=== PATIENT | male | born 2000 | race Hispanic/Latino ===

== ENCOUNTER 2025-08-15 05:57 | Day surgery (SDC) | payer OTHER ==
[2025-08-13 13:57] LABS: Absolute Lymphocytes (CBC) 2.0 K/uL (0.7-4.9); Hematocrit 42.5 % (39.6-49.0); Hemoglobin 14.3 g/dL (13.6-17.9); MCH 28.8 pg (27.0-35.0); MCHC 33.6 g/dL (32.0-36.0); MCV 85.8 fL (80-100); MPV 10.6 fL (7.6-11.3); Nucleated RBC Absolute Count 0.0 (0-0); Nucleated Red Blood Cells % 0.0 % (0-0); RBC Red Blood Cell Count 4.95 M/uL (4.33-5.43); White Blood Count 6.60 thou/uL (4.3-10.9)
[2025-08-13 14:05] LABS: PT Prothrombin Time 13.0 SECONDS (10-13.0); PTT, Activated Partial Thromb 34.4 SECONDS (27.2-37.4); Protime INR 1.16
[2025-08-13 14:14] LABS: Anion Gap 10.7 mEq/L (5.0-15.0); BUN Blood Urea Nitrogen 18.0 mg/dL (7-18); Glucose Level 101.0 mg/dL (74-106); Potassium 3.7 mEq/L (3.5-5.1)
--- NOTE | 2025-08-13 18:35 | RAD REPORT ---
EXAMINATION: TWO VIEW CHEST XR CLINICAL INDICATION: Male, 24 years old. Hypertension. Pre-op pending ACL repair TECHNIQUE: 2 view radiographs of the chest were performed. COMPARISON: No prior exam. FINDINGS: The lungs are well inflated and clear. No pneumothorax or sizable effusion. The heart is normal in si ze. Mediastinal contours are unremarkable. IMPRESSION: No acute or significant abnormalities.
[2025-08-15] MEDS: Ringers Lactate 1,000 ML IV ONE ×2 (06:00→09:00)
[2025-08-15] MEDS ORDERED: LIDOCAINE 1% MPF 5 ML VIAL ONE (06:27)
[2025-08-15] MEDS ORDERED: MIDAZOLAM HCL 2 MG/2 ML INJ ONE (06:28)
[2025-08-15] MEDS ORDERED: BUPIVACAINE 0.5% PF 10 ML VIAL ONE (06:28)
[2025-08-15] MEDS ORDERED: EPINEPHRINE 1 MG/ML VIAL ONE (06:29)
[2025-08-15] MEDS ORDERED: FENTANYL CITR 100 MCG/2 ML ONE ×2 (06:29→10:35)
[2025-08-15] MEDS ORDERED: KETAMINE HCL IN 0.9 % NACL 50 MG/5 ML SYRINGE IV ONE (07:15)
[2025-08-15] MEDS ORDERED: KETOROLAC 30 MG/ML INJ ONE (07:15)
[2025-08-15] MEDS ORDERED: ONDANSETRON 4 MG/2 ML VIAL ONE (07:15)
[2025-08-15] MEDS ORDERED: LIDOCAINE 2% MPF 5 ML VIAL ONE ×2 (07:15)
[2025-08-15] MEDS ORDERED: MAGNESIUM SULFATE 1 gm IVPB 1 GM/100 ML BAG IV ONE (07:40)
[2025-08-15] MEDS ORDERED: DEXMEDETOMIDINE HCL 200 MCG/2 ML VIAL ONE (07:40)
[2025-08-15] MEDS: CEFAZOLIN SODIUM 2 GM/VIAL ONE (07:58)
--- NOTE | 2025-08-15 11:01 | P.BOP ---
Preoperative diagnosis: Right knee ACL tear Postoperative diagnosis: Same, right knee lateral meniscus tear Primary procedure: Right knee arthroscopic ACL recon w bone patellar tendon bone autograft Secondary procedure: Right knee arthroscopic partial lateral meniscectomy [employer]: NONE,NONE Estimated blood loss: 10 cc Specimen: None Anesthesia: General Complications: None Implants: Two 7 x 20 mm Arthrex bio screws, 6.5 x 25 mm post Fluids & blood products: Per anesthesia record Transferred to: Recovery Room Condition: Good
--- NOTE | 2025-08-15 11:09 | P.OP ---
Preoperative diagnosis: Right knee ACL tear Postoperative diagnosis: Same, right knee lateral meniscus tear Primary procedure: Right knee arthroscopic ACL recon w bone patellar tendon bone autograft Secondary procedure: Right knee arthroscopic partial lateral meniscectomy Anesthesia: General Estimated blood loss: 10 cc Specimen: None Findings: see dictation Operative Technique: Indications For Procedure: Jason is a 24-year-old male, who presented to my clinic after sustaining an injury to his right knee. He reports subsequent instability, pain, and swelling to his right knee. Physical exam findings, as well as MRI findings were consistent with right knee ACL tear. After a discussion with the patient and his family the risks and benefits associated operative and nonoperative treatment at length, as well as graft options, they expressed understanding and elected to proceed with right ACL reconstruction with bone-patellar tendon-bone autograft. Description Of Procedure: After informed consent was obtained, the patient was identified in the preoperative holding area. The right lower extremity was marked. The patient was then brought back to the operating room, transferred to the operating table in supine fashion, and placed under general LMA anesthesia. The right lower extremity was examined. The patient did have full range of motion and a positive Lucrecia examination with instability and no endpoint. The right lower extremity was then prepped and draped in the usual sterile fashion, and a timeout was initiated. The correct patient and procedure were identified. The patient did receive his prophylactic preoperative antibiotics. An Esmarch was then used exsanguinate the right lower extremity, and the tourniquet was then inflated to 300 mmHg. Attention was first taken to obtaining the bone-patellar tendon-bone autograft. A midline incision was made over the patellar tendon extending just from the inferior pole of the patella, as well as the proximal aspect of the tibial tuberosity. Dissection was then taken down to the peritenon using a 15 blade. Peritenon was split, divided, and preserved. The patellar tendon was identified. A central 1 cm portion of the patellar tendon was then incised using a 10 blade from the inferior pole of the patella to the tibial tuberosity. A handsaw was then used to remove the 10 x 20 mm bone block over the inferior pole of the patella, as well as the 10 x 20 mm bone block over the proximal tibia. The graft was taken without complication and taken to the back table by the first aid instructor for preparation for placement in the tunnel. The patellar tendon was then approximated using 0 Vicryl. The paratenon was then approximated using 0 Vicryl. Bone graft obtained from extra bone from the bone plugs were then placed in the bony voids of the patella and within the inferior patella, as well as the tibial tuberosity. Subcutaneous tissues were approximated using a 2-0 Vicryl. Next, a standard anterolateral portal was made, and a diagnostic arthroscopy was performed. The arthroscope was brought into the patellofemoral compartment. The patient was noted to have pristine cartilage over the undersurface of the patella, as well as the trochlear groove. The arthroscope was then brought into both medial and lateral gutters, and there were no obvious loose bodies noted. The arthroscope was then brought into the medial compartment, and under direct visualization with the spinal needle and an 11 blade, an anteromedial portal was then created. The probe was inserted, and there was pristine cartilage in the medial femoral condyle. The medial tibial plateau and the medial meniscus was stable to probe. The arthroscope was then brought into the intracondylar notch, and the patient was noted to have an obvious ACL tear. The remaining ACL was then removed using an arthroscopic shaver, and a radiofrequency ablater was then used to elevate the soft tissue off the lateral femoral condyle. This was also used to cici the footprint on the tibial plateau and to cici the ACL origin on the lateral femoral condyle. Next, the arthroscope was brought into the lateral compartment. The patient was noted to have pristine cartilage over the lateral femoral condyle and the lateral tibial plateau with no obvious chondral pathology. He was noted to have a small radial type tear in the body of the lateral meniscus. It did not extend all the way into the periphery. A partial lateral meniscectomy was performed using arthroscope biters, as well as an arthroscopic shaver creating a smooth border. The arthroscope was then brought back into the intracondylar notch, and an 11 mm retro cutter was then placed over the tibial footprint. A 2 cm incision was made over the anteromedial proximal tibia for the placement of the guide onto the proximal tibia, and a guidepin was then introduced, and then tibial tunnel was retroreamed. An arthroscopic shaver was then used to clean out any bony debris within the tunnel, as well as within the joint. The knee was then brought into hyperflexion, and a 7 mm femoral offset was then used, and it was placed over a prior marked area at the insertion of the ACL on the lateral femoral condyle. A guidepin was then placed, and a 4.5 mm reamer was used over-ream the guidepin to ensure proper tunneling depth, and a 10 mm low profile reamer was then used to create the femoral tunnel. The arthroscopic shaver was then used to clean any bony debris. The graft was then placed through the tunnel, and the grasper, which had been prepared on the back table, was then passed and placed into proper position within the femoral tunnel using hemostats. The tunnel was then notched and tapped, and a 7 x 23 Arthrex biocomposite screw was placed. The knee was then placed in extension with tension being placed on the graft and the arthroscope was then placed in the tibial tunnel good position of the graft in the tunnel, and it was well seated within the tunnel, and a 7 x 20 mm bioscrew was then placed in the tibial tunnel without complication. The knee was then examined and found to have a stable Lucrecia, and a 6.5 x 25 mm post was then placed for back-up fixation, and the wounds were then irrigated thoroughly with normal saline. The subcutaneous tissue was then approximated using 2-0 Vicryl, and the portal site incisions were approximated using a 4-0 Monocryl. Postoperative Plan: The patient will proceed with postoperative therapy, and he may be weightbearing as tolerated in his right lower extremity, and he will follow up next week for dressing change and wound check. He will begin physical therapy after his first postop visit. Complications: None Implants: 2-7 x 20 mm Arthrex bio screws, 6.5 x 25 cancellous post Fluids & blood products: Per anesthesia record Transferred to: Recovery Room Condition: Good
[2025-08-15] MEDS: HYDROMORPHONE HCL 0.5 MG/0.5 ML INJ ONE (11:30)
--- NOTE | 2025-08-15 11:54 | RAD REPORT ---
Exam:Knee Right 2 View HISTORY: Right knee pain FINDINGS: Postoperative changes right knee. Screw anchored into the tibia. No fracture or dislocation seen
[2025-08-15 12:52] VITALS: BP 110/44; TEMP 98.5; O2SAT 99
== END 2025-08-15 12:34 | disposition home or self-care (01) ==
LOC: OR 05:57
PROVIDERS: ATTEND Orthopaedic Surgery Sports Medicine
PROC: 0SBC4ZZ Excision of Right Knee Joint, Percutaneous Endoscopic Approach (ICD-10-PCS; 2025-08-15)
PROC: 0SUC47Z Supplement Right Knee Joint with Autologous Tissue Substitute, Percutaneous Endoscopic Approach (ICD-10-PCS; principal; 2025-08-15 08:00)
DX: S83.511A Sprain of anterior cruciate ligament of right knee, initial encounter (principal); M25.561 Pain in right knee
CPT/HCPCS: 29866; 29888; 29881; 93005; 85025; 80048; 36415; 85610; 85730; 71046; 73560; J3490; J1885; J3475; J2704; J2003 ×3; J2250; J3010 ×2; J1100 ×2; J0169; J1171; J2405; C1713 ×2; J7120 ×2